=== PATIENT | male | born 1995 | race Caucasian/White ===

== ENCOUNTER 2020-02-02 15:23 | Emergency (ER) | payer OTHER ==
[~2020-02-02] VITALS: Ht 165.1 cm; Wt 56.7 kg
== END 2020-02-02 17:44 | disposition home or self-care (01) ==
LOC: ER 15:23
DX: K62.89 Other specified diseases of anus and rectum (principal)

== ENCOUNTER 2020-06-15 18:00 | Emergency (ER) | payer OTHER ==
[~2020-06-15] VITALS: Ht 165.1 cm; Wt 56.7 kg
[2020-06-15] MEDS ORDERED: ZOLOFT50 MG PO (18:31)
== END 2020-06-15 21:00 | disposition home or self-care (01) ==
LOC: ER 18:00
DX: D64.89 Other specified anemias (principal)

== ENCOUNTER 2023-02-27 23:59 | Emergency (ER) | payer OTHER ==
[~2023-02-27] VITALS: Ht 167.6 cm; Wt 64.0 kg
[~2023-02-27 23:59] MED LIST: ZOLOFT50 MG PO
[2023-02-28] MEDS ORDERED: MUPIROCIN1 G1 TOP (03:10)
[2023-02-28] MEDS ORDERED: CEPHALEXIN500 MG PO (03:10)
[2023-02-28] MEDS ORDERED: DOLOGESIC-DF 51 EACH PO (03:10)
== END 2023-02-28 03:19 ==
LOC: ER 23:59
DX: S60.416A Abrasion of right little finger, initial encounter (principal); W26.0XXA Contact with knife, initial encounter; Y93.G3 Activity, cooking and baking; Y92.89 Other specified places as the place of occurrence of the external cause; Y99.8 Other external cause status; Z88.6 Allergy status to analgesic agent